=== PATIENT | female | born 1960 | race African-American/Black ===

== ENCOUNTER → 2017-05-07 | Outpatient (CLI) | payer OTHER ==
[~2017-05-07] MED LIST: GLAT40SY SQ
[2017-05-07 16:34] LABS: BASO % 1 % (0-3); EOS % 2 % (0-3); HEMATOCRIT 38.5 % (36.0-47.0); HEMOGLOBIN 12.9 g/dL (12.0-15.5); LYMPH # 2.5 x10^3/uL (1.0-4.8); LYMPH % 44 % (24-48); MEAN CORPUSCULAR HEMOGLOBIN 33 pg (25-35); MEAN CORPUSCULAR HGB CONC 34 g/dL (31-37); MEAN CORPUSCULAR VOLUME 98 fL (79-100); MONO % 7 % (0-9); NEUT % 47 % (31-73); PLATELET COUNT 274 x10^3/uL (140-400); RED BLOOD COUNT 3.92 x10^6/uL (3.50-5.40); WHITE BLOOD COUNT 5.7 x10^3/uL (4.0-11.0)
[2017-05-07 16:45] LABS: ALBUMIN 3.9 g/dL (3.4-5.0); ALBUMIN/GLOBULIN RATIO 0.9 (1.0-1.7); CALCIUM 9.5 mg/dL (8.5-10.1); CREATININE 0.6 mg/dL (0.6-1.0); GFR 125.6; TOTAL BILIRUBIN 0.3 mg/dL (0.2-1.0); TOTAL PROTEIN 8.1 g/dL (6.4-8.2)
--- NOTE | 2017-05-09 11:21 | RAD ---
EXAM: 1. Right wrist 3 views. 2. Right 1st finger 3 views. HISTORY: Right thumb and wrist pain/stiffness. COMPARISON: None. FINDINGS: No fractures are appreciated throughout. There is mild 1st metacarpophalangeal osteoarthritis. Osteoarthritis is also mild at the 1st carpometacarpal joint. Other joint spaces and alignment within the right wrist are maintained. Moderate to severe osteoarthritis at the 5th distal interphalangeal joint has an erosive component. There is only mild osteoarthritis elsewhere throughout the interphalangeal joints. IMPRESSION: 1. No fracture. 2. 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 3. 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 [facility]
== END | disposition home or self-care (01) ==
LOC: LAB 15:37
PROVIDERS: ATTEND Psychiatry & Neurology Neurology with Special Qualifications in Child Neurology
DX: M19.041 Primary osteoarthritis, right hand (principal); M65.311 Trigger thumb, right thumb
CPT/HCPCS: 36415; 73110; 73140; 80053; 85025

== ENCOUNTER → 2017-06-03 | Day surgery (SDC) | payer OTHER ==
[~2017-06-03] MED LIST changes: -GLAT40SY SQ; +HYDROmorphone 2 MG/ML VIAL IV; +LIDOCAINE 1% PF 2 ML VIAL. ID; +MORPHINE SULFATE 2 MG/ML DISP.SYRIN. IV; +ONDANSETRON PF 4 MG/2 ML VIAL. IV; +PROCHLORPERAZINE 10 MG/2 ML VIAL. IV; +PROPOFOL 20 ML IV; +fentaNYL PF VIAL 100 MCG/2 ML VIAL IV
[2017-06-03] MEDS: IV RINGERS,LACTATED 1000ML 1,000 ML IV (08:28)
== END | disposition home or self-care (01) ==
LOC: ENDOS 07:49
DX: D12.3 Benign neoplasm of transverse colon (principal); K62.1 Rectal polyp; K21.9 Gastro-esophageal reflux disease without esophagitis; F17.200 Nicotine dependence, unspecified, uncomplicated; Z87.39 Personal history of other diseases of the musculoskeletal system and connective tissue; Z72.0 Tobacco use; Z86.69 Personal history of other diseases of the nervous system and sense organs
CPT/HCPCS: 43235; 88305; J2704

== ENCOUNTER → 2019-04-30 | Outpatient (CLI) | payer OTHER ==
[2017-06-03 09:50] VITALS: BP 166/77
[~2019-04-30] MED LIST changes: +ACET325T9 PO; +GADOTERATE 7.5 MMOL/15ML VIAL. IVP ONE; +GLAT40SY SQ; -HYDROmorphone 2 MG/ML VIAL IV; +IBUP200C9 PO; -LIDOCAINE 1% PF 2 ML VIAL. ID; +MIRT30TA2 PO; -MORPHINE SULFATE 2 MG/ML DISP.SYRIN. IV; -ONDANSETRON PF 4 MG/2 ML VIAL. IV; -PROCHLORPERAZINE 10 MG/2 ML VIAL. IV; -PROPOFOL 20 ML IV; -fentaNYL PF VIAL 100 MCG/2 ML VIAL IV
--- NOTE | 2019-04-30 14:55 | KCIC ---
MRI Brain with and without contrast History: Multiple sclerosis, fatigue, balance problems, incontinence Technique: Multiplanar, multi sequential pre and postcontrast MR imaging was performed of the brain. Comparison: July 10, 2015 Findings: There are again multiple foci of T2 and FLAIR hyperintense abnormality of the supratentorial parenchyma bilaterally and also of the linnea. There is now more prominent focus of the central and right paracentral linnea although decreased prominence of focus of the inferior left linnea. Focus of the medial right basal ganglia is also more prominent on this exam, centered near the genu of the internal capsule. A couple of small foci along the anterior left lateral ventricle are also more prominent. There is no new nodular parenchymal or leptomeningeal enhancement. There is again developmental venous anomaly of the right frontal lobe. No new midline shift or extra-axial fluid collection. Ventricular size is stable, within normal limits. There is preservation of the major arterial intracranial flow-voids at the skull base. There is right maxillary sinus mucous retention cyst as seen previously on the order of about 2.1 cm. There is mild patchy fluid of the mastoid air cells greater on the left. Cerebellar tonsils are normal in location. There is preserved marrow signal of the clivus. These no abnormality of pineal gland or pituitary gland. There is degenerative disc disease of the visualized C4-5 level. Impression: 1. There is again evidence of multiple sclerosis, no new abnormal intracranial enhancement. There has been some interval change of foci of signal abnormality, more prominent focus of the central and right linnea although decreased inferiorly of the left linnea. There is also more prominent focus of the medial right basal ganglia and a couple of slightly more prominent foci of the left periventricular white matter anteriorly. Electronically signed by: Osmani Baird MD (04/30/2019 2:52 PM) [id number]
== END | disposition home or self-care (01) ==
LOC: KCIC MRI 13:08
PROVIDERS: ATTEND Psychiatry & Neurology Neurology with Special Qualifications in Child Neurology
DX: G35 Multiple sclerosis (principal); J34.1 Cyst and mucocele of nose and nasal sinus; M50.321 Other cervical disc degeneration at C4-C5 level; Z90.89 Acquired absence of other organs
CPT/HCPCS: 70553; A9575

== ENCOUNTER → 2020-09-26 | Outpatient (CLI) | payer OTHER ==
[2017-06-03 09:50] VITALS: BP 166/77
[~2020-09-26] MED LIST changes: +GADOTERATE 5 MMOL/10ML VIAL. IVP ONE; -GADOTERATE 7.5 MMOL/15ML VIAL. IVP ONE
--- NOTE | 2020-09-26 11:56 | RAD ---
MRI of the Brain without and with Contrast 09/26/2020 Clinical History: Multiple sclerosis. Technique: Unenhanced T1-weighted and FLAIR sagittal and axial and T2-weighted, gradient echo and dif fusion-weighted axial images of the brain were obtained. After the intravenous administration of 10 c c of CLARISCAN, enhanced T1-weighted axial, sagittal and coronal images of the brain were obtained. Findings: Comparison study is dated 04/30/2019. The ventricles and sulci are within normal limits in size and configuration. Patchy, confluent and mu ltiple rounded and oval-shaped areas of abnormally increased signal intensity are seen within the per iventricular, deep and subcortical white matter of both cerebral hemispheres along with the linnea on t he FLAIR and T2-weighted images consistent with the patient's history of multiple sclerosis. These le sions have not significantly changed since the previous examination. No new lesion is seen. No area o f abnormal enhancement is noted. There is no MRI evidence of acute ischemia/infarction. A small venous angioma is seen involving the r ight frontoparietal lobe, unchanged. No extra-axial fluid collection is identified. Mild mucosal thickening is seen scattered throughout the paranasal sinuses. A 2 cm mucous retention c yst is seen involving the right maxillary sinus. There is a minimal right mastoid effusion. A small l eft mastoid effusion is seen. Normal flow voids are seen within the major vascular structures surroun ding the brain parenchyma. IMPRESSION: Findings are again seen consistent with the patient's history of multiple sclerosis, unch anged. No new lesion is seen. No enhancing lesion is noted. Electronically signed by: Weston Bansk MD (09/26/2020 11:53 AM) [id number]
== END ==
LOC: MRI 09:20
PROVIDERS: ATTEND Psychiatry & Neurology Neurology with Special Qualifications in Child Neurology
DX: G35 Multiple sclerosis (principal)
CPT/HCPCS: 70553; A9575